=== PATIENT | female | born 1935 | race Caucasian/White ===

== ENCOUNTER 2024-03-28 18:49 | Emergency (ER) | payer MEDICARE, OTHER ==
[~2024-03-28] VITALS: Ht 162.6 cm; Wt 64.9 kg
[~2024-03-28 18:49] MED LIST: ASPIRIN81 M1 PO; BUSPIRONE HCL7.5 MG PO; LEVOTHYROXINE75 MCG PO; SIMVASTATIN20 MG PO
[2024-03-28] MEDS ORDERED: KETOROLAC TROMETHAMINE 30 MG/ML VIAL IV STA (21:33)
[2024-03-28] MEDS: KETOROLAC TROMETHAMINE 60 MG/2 ML VIAL IM STA (21:50)
[2024-03-28] MEDS ORDERED: KETOROLAC TROME10 MG PO (23:00)
[2024-03-28 23:15] VITALS: PULSE 81; RESP 18; TEMP 98.3; O2SAT 99
== END 2024-03-28 23:23 | disposition home or self-care (01) ==
LOC: ER 19:30
DX: S32.030A Wedge compression fracture of third lumbar vertebra, initial encounter for closed fracture (principal); R42 Dizziness and giddiness; W01.0XXA Fall on same level from slipping, tripping and stumbling without subsequent striking against object, initial encounter; Y93.01 Activity, walking, marching and hiking; Y92.89 Other specified places as the place of occurrence of the external cause; R94.31 Abnormal electrocardiogram [ECG] [EKG]
CPT/HCPCS: 72100; 93005; 99283; J1885